=== PATIENT | male | born 1940 | race Caucasian/White ===

== ENCOUNTER 2022-03-27 23:01 | Emergency (ER) | payer MEDICARE, OTHER | END 2022-03-28 01:01 | disposition home or self-care (01) | LOC: JD.ED 23:01 | DX: M77.9 Enthesopathy, unspecified (principal); Z90.49 Acquired absence of other specified parts of digestive tract; Z79.82 Long term (current) use of aspirin; Z79.899 Other long term (current) drug therapy | CPT/HCPCS: 73630-26-LT; 73630-LT; 99283 ==

== ENCOUNTER 2023-04-28 07:12 | Day surgery (SDC) | payer MEDICARE, OTHER ==
[~2023-04-28 07:12] MED LIST: Lactated Ringers 1,000 ML IV SCH; Propofol 200 MG/20 ML SDV ONE; Sodium Chloride 0.9% 10 ML Syringe FLUSH PRN; Sodium Chloride 0.9% 10 ML Syringe FLUSH SCH
[2023-04-28] MEDS ORDERED: HYDROmorphone 0.5 MG/0.5 ML Syringe IVPUSH PRN (07:41)
[2023-04-28] MEDS ORDERED: Ondansetron 4 MG/2 ML SDV IVPUSH PRN (07:41)
[2023-04-28] MEDS ORDERED: fentaNYL 100 MCG/2 ML SDV IVPUSH PRN (07:41)
[2023-04-28] MEDS ORDERED: fentaNYL 100 MCG/2 ML SDV ONE (07:47)
[2023-04-28] MEDS ORDERED: ePHEDrine 50 MG/ML SDV ONE (08:10)
== END 2023-04-28 09:40 | disposition home or self-care (01) ==
LOC: JD.SDS 07:12
PROVIDERS: ATTEND Specialist
DX: K27.9 Peptic ulcer, site unspecified, unspecified as acute or chronic, without hemorrhage or perforation (principal); K57.30 Diverticulosis of large intestine without perforation or abscess without bleeding; F41.9 Anxiety disorder, unspecified; I25.10 Atherosclerotic heart disease of native coronary artery without angina pectoris; E78.5 Hyperlipidemia, unspecified; Z79.899 Other long term (current) drug therapy
CPT/HCPCS: J2704; J3010; J3490; J7120

== ENCOUNTER 2025-01-29 13:20 | Emergency (ER) | payer MEDICARE, OTHER | END 2025-01-29 14:55 | disposition home or self-care (01) | LOC: JD.ED 13:20 | DX: H69.93 Unspecified Eustachian tube disorder, bilateral (principal); Z86.73 Personal history of transient ischemic attack (TIA), and cerebral infarction without residual deficits; Z95.1 Presence of aortocoronary bypass graft; Z85.46 Personal history of malignant neoplasm of prostate; Z79.899 Other long term (current) drug therapy; Z90.49 Acquired absence of other specified parts of digestive tract | CPT/HCPCS: 70450; 70450-26; 99284 ==